=== PATIENT | female | born 1960 | race American Indian/Alaskan Native ===

== ENCOUNTER 2016-12-08 17:00 | Emergency (ER) | payer MEDICAID ==
[~2016-12-08] VITALS: Ht 160 cm; Wt 70.0 kg
[~2016-12-08 17:00] MED LIST: IBUP200C5 PO; NONE PER PT; OXYC-302 PO
[2016-12-08] MEDS ORDERED: MORPHINE SULFATE 4 MG/ML, 1ML IVPush PRN (17:30)
[2016-12-08] MEDS ORDERED: MORPHINE SULFATE 4 MG/ML, 1ML ONE (17:41)
[2016-12-08] MEDS ORDERED: ONDANSETRON 2MG/ML, 2ML ONE (17:45)
[2016-12-08] MEDS ORDERED: ONDANSETRON 2MG/ML, 2ML IVPush ONE (18:00)
[2016-12-08] MEDS ORDERED: SODIUM CHLORIDE 0.9% 1,000 ML IV ONE (20:37)
[2016-12-08] MEDS ORDERED: NALOXONE 1 MG/ML, 2ML ONE (20:41)
[2016-12-08] MEDS ORDERED: NALOXONE 0.4 MG/ML, 1ML IVPush ONE (21:00)
[2016-12-08] MEDS ORDERED: SODIUM CHLORIDE 0.9% 1,000ML IVBOLUS ONE (21:00)
[2016-12-08 21:03] LABS: HEMOGLOBIN 12.9 g/dL (11.7-16.4); WHITE BLOOD COUNT 8.6 x10^3/uL (3.4-10)
[2016-12-08 21:13] LABS: ASPARTATE AMINO TRANSFERASE 74 U/L (15-37); BLOOD UREA NITROGEN 8 mg/dL (7-18)
[2016-12-08 21:19] LABS: ACETAMINOPHEN < 2 mcg/mL (10-30); IS PT STATUS REG ER OR PRE ER? YES
[2016-12-08 22:15] LABS: DAU SCREEN DISCLAIMER
[2016-12-08 22:32] VITALS: BP 118/66
== END 2016-12-08 19:53 | disposition home or self-care (01) ==
LOC: ED 19:47
DX: S93.431A Sprain of tibiofibular ligament of right ankle, initial encounter (principal); S93.621A Sprain of tarsometatarsal ligament of right foot, initial encounter; E86.0 Dehydration; F10.120 Alcohol abuse with intoxication, uncomplicated; R55 Syncope and collapse; V59.9XXA Occupant (driver) (passenger) of pick-up truck or van injured in unspecified traffic accident, initial encounter; Y93.89 Activity, other specified; Y92.820 Desert as the place of occurrence of the external cause; Y99.8 Other external cause status
CPT/HCPCS: 29515; 36415; 71010; 73590; 73610; 73630; 80053; 80307; 80329; 82962; 84484; 85025; 93005; 96361; 96374; 96375; 99285; J2310; J2405; J7030; G0479; G0480